=== PATIENT | female | born 1995 | race Caucasian/White ===

== ENCOUNTER 2020-01-08 11:08 | Emergency (ER) | payer OTHER ==
[~2020-01-08] VITALS: Ht 162.6 cm; Wt 106.1 kg
[2020-01-08 11:23] VITALS: BP_SYST 160
--- NOTE | 2020-01-08 11:25 | NUR ---
Patient to ER bed 4 to gown for evaluation. Side rails up. Report given to ZULEMA Duke.
--- NOTE | 2020-01-08 11:27 | NUR ---
Patient arrived via POV, AAOx4, and ambulatory with steady gait. Patient c/c of vaginal bleeding. Onset after transvaginal ultrasound on Thursday. Bleeding has been intermittent with no saturation of pads. Patient states there were FHT on Thursday, once bleeding and cramping began, she followed up again with Dr. Norman's office. In office ultrasound performed and positive heart tones. Patient states she has continued to have bleeding. Dark red blood, primarily with wiping. Cramping continues and is rated at 6/10, and she states there is pelvic "tingling sensation." This is patients second . First ended in miscarriage at 18 weeks, approximately 1 year ago. Patient states only history is with high blood pressure with first .
--- NOTE | 2020-01-08 11:34 | NUR ---
ISAEL Lund at bedside examining patient.
[2020-01-08 11:56] LABS: BASOPHILS # (AUTO) 0.1 K/uL (0.0-0.2); BASOPHILS % (AUTO) 0.7 % (0.0-2.0); EOSINOPHILS # (AUTO) 0.3 K/uL (0.0-0.4); EOSINOPHILS % (AUTO) 2.2 % (0.0-4.0); HEMATOCRIT 44.8 % (36-48); HEMOGLOBIN 15.8 g/dL (12.0-16.0); LYMPHOCYTES # (AUTO) 3.9 K/uL (1.0-5.5); LYMPHOCYTES % (AUTO) 31.1 % (20.5-51.5); MEAN CORPUSCULAR HEMOGLOBIN 33 pg (27-31); MEAN CORPUSCULAR HGB CONC 35 % (32-36); MEAN CORPUSCULAR VOLUME 93 fL (79.0-98.0); MONOCYTES # (AUTO) 0.5 K/uL (0.0-1.0); MONOCYTES % (AUTO) 4.1 % (1.7-9.3); NEUTROPHILS # (AUTO) 7.8 K/uL (1.8-7.7); NEUTROPHILS % (AUTO) 61.9 % (40.0-70.0); PLATELET COUNT (AUTO) 277 K/uL (130-430); RED BLOOD CELL COUNT(AUTO) 4.82 MIL/uL (4.2-6.2); RED CELL DISTRIBUTION WIDTH 13.1 % (9.0-15.0); WHITE BLOOD COUNT (AUTO) 12.6 K/uL (4.8-10.8)
[2020-01-08 11:57] LABS: BILIRUBIN,URINE NEGATIVE (NEGATIVE); BLOOD, URINE 3+ (NEGATIVE); CLARITY/URINE CLEAR (CLEAR); COLOR,URINE YELLOW (YELLOW); GLUCOSE,URINE NEGATIVE (NEGATIVE); KETONES,URINE NEGATIVE (NEGATIVE); LEUKOCYTE ESTERASE ,URINE 1+ (NEGATIVE); NITRITE, URINE NEGATIVE (NEGATIVE); PROTEIN URINE NEGATIVE (NEGATIVE); UROBILINOGEN,URINE 0.2 (0.2-1.0)
--- NOTE | 2020-01-08 12:00 | NUR ---
Patient transported to radiology via WC, accompanied by US tech
[2020-01-08 12:05] LABS: BACTERIA,URINE FEW /HPF (None Seen); MUCUS,URINE 1+ /LPF (None Seen)
[2020-01-08 12:16] LABS: CALCIUM 9.2 mg/dL (8.4-11.0); CREATININE 0.72 mg/dL (0.55-1.30); POTASSIUM 3.9 mmol/L (3.5-5.1)
[2020-01-08] MEDS ORDERED: NITROFURANTOIN MONOHYD/M-CRYST 100 MG CAPSULE PO ONE (12:30)
[2020-01-08 12:47] LABS: ALBUMIN 3.8 g/dL (3.4-4.8); TOTAL BILIRUBIN 1.1 mg/dL (0.0-1.0)
[2020-01-08 13:15] VITALS: BP_SYST 160
--- NOTE | 2020-01-08 13:15 | NUR ---
Patient given written and verbal discharge instructions and verbalizes understanding. ER MD discussed with patient the results and treatment provided. Patient in stable condition. ID arm band removed. Rx of Macrobid given. Patient educated on pain management and to follow up with PMD. Pain Scale 0/10. Opportunity for questions provided and answered. Medication side effect fact sheet provided.
== END 2020-01-08 13:15 | disposition home or self-care (01) ==
LOC: SED 11:08
DX: O20.0 Threatened abortion (principal); O23.42 Unspecified infection of urinary tract in pregnancy, second trimester; Z3A.18 18 weeks gestation of pregnancy
CPT/HCPCS: 36415; 76801; 76817; 80053; 81000-TC; 81025; 84702-TC; 85025; 86900; 86901; 87086; 99284

== ENCOUNTER 2020-01-09 22:39 | Emergency (ER) | payer OTHER ==
[2020-01-09 22:45] VITALS: BP_SYST 132
[2020-01-10 00:12] VITALS: BP_SYST 132
== END 2020-01-10 00:12 | disposition home or self-care (01) ==
LOC: SED 22:39
DX: O20.0 Threatened abortion (principal); O20.9 Hemorrhage in early pregnancy, unspecified; O26.892 Other specified pregnancy related conditions, second trimester; R03.0 Elevated blood-pressure reading, without diagnosis of hypertension; Z3A.18 18 weeks gestation of pregnancy
CPT/HCPCS: 36415; 84702-TC; 99284